=== PATIENT | female | born 1955 | race African-American/Black ===

== ENCOUNTER → 2017-02-22 | Outpatient (CLI) | payer MEDICARE | LOC: RAD 09:30 | PROVIDERS: ATTEND Physician Assistant | DX: R07.9 Chest pain, unspecified (principal); R79.89 Other specified abnormal findings of blood chemistry | CPT/HCPCS: 71275 ==

== ENCOUNTER 2018-05-07 16:46 | Observation (INO) | payer MEDICARE ==
--- NOTE | 2018-05-07 17:27 | ER Document Report ---
ED Syncope and Near Syncope - General Stated Complaint: FAINTING Time Seen by Provider: 05/07/18 17:21 Notes: Patient was sitting in a chair in the yard when she began to feel dizzy and passed out. Her son caught the chair so the patient did not go to the ground. Patient says that she had eaten lunch just 10 or 15 minutes earlier. She had been picking up trash in the yard but only for a few minutes. Does not think she got overheated. Patient said that she was having some nausea but has not vomited. No change in bowel habits. Patient recalls sweating heavily after this happened until she was brought here by EMS. Has not been sick recently. Patient has a history of high cholesterol and high blood pressure, rheumatoid arthritis on prednisone, TRAVEL OUTSIDE OF THE [place] IN LAST 30 DAYS: No - Related Data Allergies/Adverse Reactions: No Known Allergies Allergy (Verified 05/07/18 18:43) Past Medical History - Social History Smoking Status: Former Smoker - Smokes vapor cigarettes. Family History: Reviewed & Not Pertinent - Past Medical History Cardiac Medical History: Reports: Hx Hypercholesterolemia, Hx Hypertension Endocrine Medical History: Denies: Hx Diabetes Mellitus Type 1, Hx Diabetes Mellitus Type 2 Past Surgical History: Reports: Hx Tubal Ligation - Immunizations Hx Diphtheria, Pertussis, Tetanus Vaccination: Yes Review of Systems - Review of Systems Notes: REVIEW OF SYSTEMS: CONSTITUTIONAL : Denies fever. EENT: Denies eye, ear, nose or mouth or throat pain or other symptoms. CARDIOVASCULAR: Denies chest pain. RESPIRATORY: Denies cough, chest congestion, or shortness of breath. GASTROINTESTINAL: See HPI. GENITOURINARY: Denies difficulty or painful urinating, urinary frequency, blood in urine. MUSCULOSKELETAL: Denies back or neck pain. Denies joint pain or swelling. SKIN: Denies rash or skin lesions. NEUROLOGICAL: See HPI. Denies headache. Denies sensory loss or motor deficits. ALL OTHER SYSTEMS REVIEWED AND NEGATIVE. Physical Exam - Vital signs Vitals: Resp Pulse Ox 12 95 05/07/18 16:58 05/07/18 16:58 Interpretation: Normal Course - Re-evaluation Re-evalutation: 05/07/18 20:33 Discussed results of studies with patient and with Dr. Toledo who is on for this patient's primary care provider, Dr. Marinelli. We have recommended that the patient stay in the hospital overnight on monitoring. Patient will be admitted to Dr. Marinelli's service. - Vital Signs Vital signs: Temp Pulse Resp BP Pulse Ox 14 122/73 95 05/07/18 20:01 05/07/18 20:00 05/07/18 20:01 - Laboratory Result Diagrams: 05/07/18 19:30 05/07/18 19:30 Laboratory results interpreted by me: 05/07/18 05/07/18 05/07/18 19:30 19:30 19:49 WBC 11.3 H MCH 25.7 L RDW 16.0 H Seg Neutrophils % 83.6 H Lymphocytes % 9.6 L Absolute Neutrophils 9.5 H BUN 24 H Glucose 126 H Urine Ketones TRACE H Ur Leukocyte Esterase TRACE H Discharge - Discharge Clinical Impression: Syncope Condition: Stable Disposition: ADMITTED OBSERVATION Admitting Provider: Yves Unit Admitted: Telemetry Referrals: TIKI PITTS PA [Primary Care Provider] - Follow up as needed
--- NOTE | 2018-05-07 19:02 | RADIOLOGY REPORT (SQ) ---
EXAM DESCRIPTION: CT HEAD WITHOUT COMPLETED DATE/TIME: 05/07/2018 6:40 pm REASON FOR STUDY: Syncope COMPARISON: CT head 12/23/2008. MRI brain 12/24/2008. TECHNIQUE: Axial images acquired through the brain without intravenous contrast. Images reviewed wi th bone, brain and subdural windows. Images stored on PACS. All CT scanners at this facility use dose modulation, iterative reconstruction, and/or weight based d osing when appropriate to reduce radiation dose to as low as reasonably achievable (ALARA). [facility]: Dose Right [facility]: CareDose [facility]: Dose Right [facility]: Teradose 4D [facility]: Smart Technologies RADIATION DOSE: CT Rad equipment meets quality standard of care and radiation dose reduction techniq ues were employed. CTDIvol: 53.2 mGy. DLP: 1044 mGy-cm. mGy. LIMITATIONS: None. FINDINGS: VENTRICLES: Normal size and contour. CEREBRUM: No mass effect. No hemorrhage. No midline shift. No evidence for acute territorial infar ction. Low density areas are seen within the periventricular white matter. CEREBELLUM: No hemorrhage. No alteration of density. No evidence for acute infarction. EXTRAAXIAL SPACES: No fluid collections. ORBITS AND GLOBE: Symmetrical contour of the globes. CALVARIUM: No depressed fracture. PARANASAL SINUSES: No air-fluid level. SOFT TISSUES: No hematoma. IMPRESSION: No acute intracranial hemorrhage or acute territorial infarct. White matter changes, ma y be secondary to demyelinating disease versus chronic microvascular ischemia. EVIDENCE OF ACUTE STROKE: NO. COMMENT: Quality ID # [id number]: Final reports with documentation of one or more dose reduction techniques (e.g., Automated exposure control, adjustment of the mA and/or kV according to patient size, use of iterative reconstruction technique) TECHNICAL DOCUMENTATION: JOB ID: [id number] 2010 [employer]- All Rights Reserved Reading location - IP/workstation name: [email or web address]
--- NOTE | 2018-05-07 19:34 | RADIOLOGY REPORT (SQ) ---
EXAM DESCRIPTION: CHEST 2 VIEWS COMPLETED DATE/TIME: 05/07/2018 6:48 pm REASON FOR STUDY: Syncope COMPARISON: Chest x-ray 12/23/2008. EXAM PARAMETERS: NUMBER OF VIEWS: two views TECHNIQUE: Digital Frontal and Lateral radiographic views of the chest acquired. RADIATION DOSE: NA LIMITATIONS: none FINDINGS: LUNGS AND PLEURA: No consolidation, pneumothorax or pleural effusion. MEDIASTINUM AND HILAR STRUCTURES: No masses or contour abnormalities. HEART AND VASCULAR STRUCTURES: Heart normal size. No evidence for failure. BONES: There is thoracic scoliosis. HARDWARE: None in the chest. IMPRESSION: NO ACUTE RADIOGRAPHIC FINDING IN THE CHEST. TECHNICAL DOCUMENTATION: JOB ID: [id number] [id number] 2010 [employer]- All Rights Reserved Reading location - IP/workstation name: [email or web address]
[2018-05-07 19:42] LABS: ABSOLUTE BASOPHILS # (AUTO) 0.1 10^3/uL (0.0-0.2); ABSOLUTE LYMPHOCYTES (AUTO) 1.1 10^3/uL (0.5-4.7); ABSOLUTE MONOCYTES (AUTO) 0.7 10^3/uL (0.1-1.4); ABSOLUTE NEUT (AUTO) 9.5 10^3/uL (1.7-8.2); BASOPHILS % (AUTO) 0.8 % (0-2); EOSINOPHILS % (AUTO) 0.1 % (0-6); HEMATOCRIT 39.4 % (36.0-47.0); HEMOGLOBIN 12.7 g/dL (12.0-15.5); LYMPHOCYTES % (AUTO) 9.6 % (13-45); MEAN CORPUSCULAR HEMOGLOBIN 25.7 pg (27.0-33.4); MEAN CORPUSCULAR HGB CONC 32.2 g/dL (32.0-36.0); MEAN CORPUSCULAR VOLUME 80 fl (80-97); MONOCYTES % (AUTO) 5.9 % (3-13); PLATELET COUNT 264 10^3/uL (150-450); RED BLOOD COUNT 4.95 10^6/uL (3.72-5.28); SEGMENTED NEUTROPHILS % (AUTO) 83.6 % (42-78); TOTAL CELLS COUNTED % (AUTO) 100 %; WHITE BLOOD COUNT 11.3 10^3/uL (4.0-10.5)
[2018-05-07 20:04] LABS: ALANINE AMINOTRANSFERASE 20 U/L (9-52); ALBUMIN 3.9 g/dL (3.5-5.0); ALKALINE PHOSPHATASE 63 U/L (38-126); ANION GAP 13 (5-19); ASPARTATE AMINO TRANSFERASE 20 U/L (14-36); BILIRUBIN,DIRECT 0.3 mg/dL (0.0-0.4); BILIRUBIN,TOTAL 0.3 mg/dL (0.2-1.3); BLOOD UREA NITROGEN 24 mg/dL (7-20); CALCIUM 9.5 mg/dL (8.4-10.2); CARBON DIOXIDE 26 mmol/L (22-30); CHLORIDE 106 mmol/L (98-107); CREATINE KINASE 37 U/L (30-135); GLUCOSE 126 mg/dL (75-110); LIPASE 101.1 U/L (23-300); SODIUM 144.7 mmol/L (137-145); TOTAL PROTEIN 7.3 g/dL (6.3-8.2)
[2018-05-07 20:16] LABS: CREATINE KINASE MB < 0.22 ng/mL (<4.55); TROPONIN I < 0.012 ng/mL
[2018-05-07 20:24] LABS: APPEARANCE,URINE CLEAR; BILIRUBIN,URINE NEGATIVE (NEGATIVE); COLOR,URINE YELLOW; GLUCOSE, URINE NEGATIVE (NEGATIVE); KETONES,URINE TRACE mg/dL (NEGATIVE); LEUKOCYTE ESTERASE,URINE TRACE (NEGATIVE); NITRITE,URINE NEGATIVE (NEGATIVE); PROTEIN,URINE NEGATIVE (NEGATIVE); URINE SPECIFIC GRAVITY 1.018; UROBILINOGEN,URINE NEGATIVE mg/dL (<2.0)
[2018-05-07] MEDS ORDERED: NORMAL SALINE 1000 ML 1,000 ML IV PRN (21:16)
[2018-05-07] MEDS ORDERED: CEFTRIAXONE INJ 1000 MG VIAL ONE (21:31)
[2018-05-07] MEDS ORDERED: CEFTRIAXONE 1 GM/D5W RTU 1 GM/50 ML RTUPB IV SCH (22:00)
--- NOTE | 2018-05-07 22:00 | PDOC H&P ---
History of Present Illness Admission Date/PCP: 05/07/18 21:09 TIMOTHY ALONSO MD Patient complains of: Syncope History of Present Illness: HAILEY BENDER is a 62 year old female patient of Dr Timothy Alonso who presented to the ED via EMS after family reported witnessed syncopal episode. Patient was lucid and able to contribute to her medical history at the time of my evaluation with daughter at bedside and concur with her narrated history. Patient reported walking out of her house into family gathering at a barbecue. She bend down and picked up some garbage from the floor, sat down, noted to be breathing heavily by son sitting nearby and subsequently passed out. Patient admitted to feeling dizzy denied any preceding palpitation, diaphoresis, nausea , or abdominal pain. Daughter reported that patient became clammy and cold to touch during period of the syncopal event. Patient reported episode of abdominal discomfort with nausea but no vomiting en route to the ED. She reported compliance with her medications. Denied alcohol intake, illicit or recreational drug usage. Her initial evaluation in the ED was unrevealing except some abnormality in her urinalysis. Her morbidities include Hypertension , Hyperlipidemia, and Rheumatoid arthritis. She reported similar syncopal episodes in the past. She was advised hospitalization of observation bed for further evaluation and management. Past Medical History Cardiac Medical History: Reports: Hyperlipidema, Hypertension Endocrine Medical History: Denies: Diabetes Mellitus Type 1, Diabetes Mellitus Type 2 Past Surgical History Past Surgical History: Reports: Tubal Ligation Social History Smoking Status: Former Smoker - Smokes vapor cigarettes. Family History Family History: Reviewed & Not Pertinent Parental Family History Reviewed: Yes Children Family History Reviewed: Yes Sibling(s) Family History Reviewed.: Yes Medication/Allergy Home Medications: Ibuprofen 800 mg PO PRN PRN 09/14/13 Lisinopril/Hydrochlorothiazide [Lisinopril-Hctz 20-12.5 mg Tab] 1 each PO PRN PRN 09/14/13 Pentoxifylline [Pentoxil] 1,400 mg PO TID 09/14/13 Allergies/Adverse Reactions: No Known Allergies Allergy (Verified 05/07/18 18:43) Review of Systems Constitutional: ABSENT: chills, fever(s), headache(s), weight gain, weight loss Eyes: ABSENT: visual disturbances Ears: ABSENT: hearing changes Nose, Mouth, and Throat: ABSENT: as per HPI, headache(s), mouth pain, sore throat, vertigo, other Cardiovascular: ABSENT: as per HPI, chest pain, dyspnea on exertion, edema, orthropnea, palpitations, other Respiratory: ABSENT: cough, hemoptysis Gastrointestinal: PRESENT: abdominal pain, nausea. ABSENT: as per HPI, bloating , coffee ground emesis, constipation, diarrhea, dysphagia, heartburn, hematemesis, hematochezia, melena, vomiting, other Genitourinary: ABSENT: dysuria, hematuria Musculoskeletal: ABSENT: joint swelling Integumentary: PRESENT: diaphoresis. ABSENT: as per HPI, erythema, lesions, pruritus, rash, wounds, other Neurological: PRESENT: dizziness, syncope. ABSENT: as per HPI, abnormal gait, abnormal movements, abnormal speech, confusion, convulsions, focal weakness, frequent falls, lack of coordination, memory loss, numbness, paresthesias, restless legs, tingling, tremor(s), vertigo, weakness, other Psychiatric: ABSENT: anxiety, depression, homidical ideation, suicidal ideation Endocrine: ABSENT: cold intolerance, heat intolerance, polydipsia, polyuria Hematologic/Lymphatic: ABSENT: easy bleeding, easy bruising, lymphadenopathy Allergic/Immunologic: ABSENT: seasonal rhinorrhea Physical Exam Vital Signs: Temp Pulse Resp BP Pulse Ox 14 122/73 95 05/07/18 20:01 05/07/18 20:00 05/07/18 20:01 General appearance: PRESENT: no acute distress, well-developed, well-nourished Head exam: PRESENT: atraumatic, normocephalic Eye exam: PRESENT: conjunctiva pink, EOMI, PERRLA. ABSENT: scleral icterus Ear exam: PRESENT: normal external ear exam Mouth exam: PRESENT: moist, neck supple, tongue midline Throat exam: ABSENT: post pharyngeal erythema, tonsillar erythema, tonsillar exudate, tonsillogmegaly, other Neck exam: PRESENT: full ROM. ABSENT: carotid bruit, JVD, lymphadenopathy, thyromegaly Respiratory exam: PRESENT: clear to auscultation caitlin Cardiovascular exam: PRESENT: RRR. ABSENT: diastolic murmur, rubs, systolic murmur Pulses: PRESENT: normal dorsalis pedis pul, +2 pedal pulses bilateral Vascular exam: PRESENT: normal capillary refill. ABSENT: pallor GI/Abdominal exam: PRESENT: tenderness - suprapubic region. ABSENT: ascites, diminished bowel sounds, distended, firm, guarding, hernia, hyperactive bowel sounds, hypoactive bowel sounds, mass, Burgess's sign, normal bowel sounds, organolmegaly, rebound, rigid, soft, other Rectal exam: PRESENT: deferred Gentrourinary exam: ABSENT: indwelling catheter Extremities exam: ABSENT: pedal edema Musculoskeletal exam: PRESENT: normal inspection Neurological exam: PRESENT: alert, awake, oriented to person, oriented to place , oriented to time, oriented to situation, CN II-XII grossly intact. ABSENT: motor sensory deficit Psychiatric exam: PRESENT: appropriate affect, normal mood. ABSENT: homicidal ideation, suicidal ideation Skin exam: PRESENT: dry, intact, warm. ABSENT: cyanosis, rash Results Laboratory Results: I reviewed her laboratory results on [facility] and form significant part of my medical decision making. Impressions: Chest X-Ray 05/07/18 17:30 IMPRESSION: NO ACUTE RADIOGRAPHIC FINDING IN THE CHEST. Head CT 05/07/18 17:31 IMPRESSION: No acute intracranial hemorrhage or acute territorial infarct. White matter changes, may be secondary to demyelinating disease versus chronic microvascular ischemia. EVIDENCE OF ACUTE STROKE: NO. Assessment & Plan - Diagnosis (1) Syncope Qualifiers: Syncope type: unspecified Qualified Code(s): R55 - Syncope and collapse Is this a current diagnosis for this admission?: Yes Plan: See covering admitting physician orders. (2) UTI (urinary tract infection), bacterial Is this a current diagnosis for this admission?: Yes Plan: See covering admitting physician orders. (3) HTN (hypertension) Qualifiers: Hypertension type: essential hypertension Qualified Code(s): I10 - Essential (primary) hypertension Is this a current diagnosis for this admission?: Yes Plan: See covering admitting physician orders. (4) HLD (hyperlipidemia) Qualifiers: Hyperlipidemia type: unspecified Qualified Code(s): E78.5 - Hyperlipidemia , unspecified Is this a current diagnosis for this admission?: Yes Plan: See covering admitting physician orders. (5) Rheumatoid arthritis Qualifiers: Rheumatoid arthritis location: unspecified site Is this a current diagnosis for this admission?: Yes Plan: See covering admitting physician orders. - Time Time Spent: 50 to 70 Minutes Medications reviewed and adjusted accordingly: Yes Anticipated discharge: Home Within: within 48 hours - Plan Summary Plan Summary: See covering admitting physician orders.
--- NOTE | 2018-05-07 23:16 | EKG REPORT ---
SEVERITY:- NORMAL ECG - SINUS RHYTHM : Confirmed by: Chelsey Teresa 07-May-2018 23:15:07
[2018-05-08 05:54] LABS: ANION GAP 10 (5-19); BLOOD UREA NITROGEN 20 mg/dL (7-20); CALCIUM 9.3 mg/dL (8.4-10.2); CARBON DIOXIDE 25 mmol/L (22-30); CHLORIDE 109 mmol/L (98-107); CHOLESTEROL 179.75 mg/dL (0-200); GLUCOSE 85 mg/dL (75-110); SODIUM 144.4 mmol/L (137-145); TRIGLYCERIDES 45 mg/dL (<150)
[2018-05-08 06:04] LABS: DIRECT LDL 88 mg/dL (<100)
[2018-05-08 06:41] LABS: ABSOLUTE BASOPHILS # (AUTO) 0.1 10^3/uL (0.0-0.2); ABSOLUTE LYMPHOCYTES (AUTO) 2.4 10^3/uL (0.5-4.7); ABSOLUTE NEUT (AUTO) 6.7 10^3/uL (1.7-8.2); BASOPHILS % (AUTO) 0.8 % (0-2); EOSINOPHILS % (AUTO) 0.3 % (0-6); HEMATOCRIT 36.6 % (36.0-47.0); HEMOGLOBIN 11.9 g/dL (12.0-15.5); LYMPHOCYTES % (AUTO) 23.3 % (13-45); MEAN CORPUSCULAR HEMOGLOBIN 26.2 pg (27.0-33.4); MEAN CORPUSCULAR HGB CONC 32.4 g/dL (32.0-36.0); MEAN CORPUSCULAR VOLUME 81 fl (80-97); MONOCYTES % (AUTO) 9.4 % (3-13); PLATELET COUNT 257 10^3/uL (150-450); RED BLOOD COUNT 4.54 10^6/uL (3.72-5.28); RED CELL DISTRIBUTION WIDTH 15.6 % (11.5-14.0); SEGMENTED NEUTROPHILS % (AUTO) 66.2 % (42-78); TOTAL CELLS COUNTED % (AUTO) 100 %; WHITE BLOOD COUNT 10.2 10^3/uL (4.0-10.5)
[2018-05-08] MEDS: LANSOPRAZOLE 30 MG TAB.RAP.DR PO SCH (08:29)
[2018-05-08] MEDS ORDERED: LORAZEPAM INJ 2 MG/1 ML VIAL IV ONE (10:00)
[2018-05-08] MEDS ORDERED: CEFTRIAXONE SODIUM 1,000 MG in DEXTROSE 5%-WATER 50 ML IV SCH (10:00)
[2018-05-08] MEDS ORDERED: (PENDING PHARMACY ID) (Lisinopril/Hydrochlorothiazide [Lisinopril-Hctz 20-12.5 Mg Tab] 1 T PO SCH (10:00)
[2018-05-08] MEDS ORDERED: ASPIRIN 325 MG TABLET PO SCH (10:00)
[2018-05-08] MEDS ORDERED: PREDNISONE 5 MG TABLET PO SCH (10:00)
[2018-05-08] MEDS ORDERED: ENOXAPARIN SODIUM INJ 40 MG/0.4 ML DISP.SYRIN SUBCUT SCH (10:00)
[2018-05-08] MEDS ORDERED: LISINOPRIL 10 MG TABLET PO SCH (10:00)
[2018-05-08] MEDS ORDERED: HYDROCHLOROTHIAZIDE 12.5 MG TABLET PO SCH (10:00)
--- NOTE | 2018-05-08 11:32 | PDOC CONSULTATION ---
Consultation Consult Date: 05/08/18 Attending physician:: TIMOTHY MARINELLI Consult reason:: Syncope History of Present Illness Admission Date/PCP: 05/07/18 21:[address] Patient complains of: Syncope History of Present Illness: HAILEY BENDER is a 62 year old female patient of Dr Timothy Marinelli who presented to the ED via EMS after family reported witnessed syncopal episode. Patient was lucid and able to contribute to her medical history at the time of my evaluation with daughter at bedside and concur with her narrated history. Patient reported walking out of her house into family gathering at a [employer]. She bend down and picked up some garbage from the floor, sat down, noted to be breathing heavily by son sitting nearby and subsequently passed out. Patient admitted to feeling dizzy denied any preceding palpitation, diaphoresis, nausea , or abdominal pain. Daughter reported that patient became clammy and cold to touch during period of the syncopal event. Patient reported episode of abdominal discomfort with nausea but no vomiting en route to the ED. She reported compliance with her medications. Denied alcohol intake, illicit or recreational drug usage. Her initial evaluation in the ED was unrevealing except some abnormality in her urinalysis. Her morbidities include Hypertension , Hyperlipidemia, and Rheumatoid arthritis. She reported similar syncopal episodes in the past. She was advised hospitalization of observation bed for further evaluation and management. This history was reviewed and confirmed. Patient claims that her symptoms started with abdominal discomfort, subsequently he felt dizzy and passed out. When she came around she was noted to be diaphoretic and also nauseous. Patient did not vomit. This history suggestive of vasovagal episode. Patient had a similar syncopal spell about a year ago. She was at that time evaluated with a 2D echocardiogram, carotid duplex and cardiac event monitoring. These results were noted to be negative. Patient also had a nuclear stress test which was noted to be negative. Past Medical History Cardiac Medical History: Reports: Hyperlipidema, Hypertension Endocrine Medical History: Denies: Diabetes Mellitus Type 1, Diabetes Mellitus Type 2 Past Surgical History Past Surgical History: Reports: Tubal Ligation Social History Information Source: Patient Smoking Status: Former Smoker Last Time Smoked: quit in 2008; patient now "vaps" Frequency of Alcohol Use: None Hx Recreational Drug Use: No Drugs: None Hx Prescription Drug Abuse: No - Advance Directive Resuscitation Status: Full Code Surrogate healthcare decision maker:: Patient's daughter is the surrogate decision-maker Family History Family History: Hypertension Parental Family History Reviewed: Yes Children Family History Reviewed: Yes Sibling(s) Family History Reviewed.: Yes Medication/Allergy Home Medications: Aspirin [Aspirin 325 mg Tablet] 1 tab PO DAILY 05/08/18 Golimumab [Simponi] 50 mg SUBCUT [id number] 05/08/18 Lisinopril/Hydrochlorothiazide [Lisinopril-Hctz 20-12.5 mg Tab] 1 tab PO DAILY 05/08/18 Methotrexate Sodium [Rheumatrex 2.5 mg Tablet] 8 mg PO MO@1000 PRN 05/08/18 Prednisone [Prednisone] 7.5 mg PO DAILY 05/08/18 Simvastatin [Zocor 10 mg Tablet] 10 mg PO QHS 05/08/18 Allergies/Adverse Reactions: No Known Allergies Allergy (Verified 05/07/18 18:43) Review of Systems Review of Systems: Please see history of present illness and past medical history as wall. Constitutional: No fever or chills reported. Head : No recent chronic headaches, recent head injury. Eyes: No recent eye pain, diplopia, redness, discharge, acute visual changes. Ears: No recent chronic ear pain, acute hearing loss, ear discharge. Oral cavity: No recent ulcerations, bleeding, oral cavity discomfort. Neck: No recent acute neck pain reported. Hematologic: No recent easy bruising or bleeding. Lymphatic: No recent lymph node enlargement reported. Cardiovascular system review: See history of present illness. Respiratory system review: No hemoptysis or blood clots in the lungs reported. Mild Shortness of breath on exertion Gastrointestinal system review: Negative for any recent acute hematemesis, melena. Genitourinary system review: No recent acute or chronic hematuria, flank pain, UTI etc. reported. Skin system review: Negative for any recent abnormal bruising, no rash, no pruritus reported. Neurologic: No prior history of strokes, mini strokes, seizure disorder. History of syncope slightly over a year ago. Psychologic: No history of major psychosis or major depression reported. Musculoskeletal: Minor aches and pains reported. No acute joint swelling reported. Endocrine: No recent polyuria, polydipsia, recent heat or cold intolerance. Physical Exam Vital Signs: Temp Pulse Resp BP Pulse Ox 98.6 F 57 L 16 121/75 99 05/08/18 08:18 05/08/18 08:18 05/08/18 08:18 05/08/18 10:40 05/08/18 08:18 Intake & Output 05/07/18 05/08/18 05/09/18 06:59 06:59 06:59 Output Total 400 Balance -400 Weight 73.2 kg Exam: GENERAL: well-nourished and in no acute distress. Alert and oriented x3 HEAD: Atraumatic, normocephalic. EYES: Pupils equal round and reactive to light, extraocular movements intact, sclera anicteric, conjunctiva are normal. ENT: TMs normal, nares patent, oropharynx clear without exudates. Moist mucous membranes. No oral ulcerations or bleeding gums noted NECK: supple without lymphadenopathy. Trachea is central. No cervical or axillary lymphadenopathy noted. Carotids are 2+, JVD WNL LUNGS: Respiration seems nonlabored, no significant accessory muscle action noted. Breath sounds clear to auscultation bilaterally and equal noted. No wheezes rales or rhonchi noted. No significant dullness noted on percussion. CHEST: Palpation of the chest wall shows no significant chest wall tenderness. HEART: [place] [employer], No PSH, 1/6 DAVID aortic area, 1/6 gasca systolic murmur mitral area, no rubs, no gallops. ABDOMEN: Soft, no significant tenderness appreciated, normoactive bowel sounds. No guarding, no rebound. No rigidity noted . No masses appreciated. EXTREMITIES: Pedal pulses are 1-2+, no calf tenderness noted. No clubbing or cyanosis. negative pedal edema noted NEUROLOGICAL: Focused neurological exam showed no significant neurologic deficit. Normal speech, no focal weakness appreciated. PSYCH: Normal mood, normal affect. Judgment and insight within normal limits. SKIN: No significant ecchymosis, skin is noted to be warm. MUSCULOSKELETAL EXAM: No significant acute joint swelling noted. Results Laboratory Results: 05/08/18 05:37 05/08/18 04:45 05/08/18 05/08/18 04:45 05:37 WBC 10.2 RBC 4.54 Hgb 11.9 L Hct 36.6 MCV 81 MCH 26.2 L MCHC 32.4 RDW 15.6 H Plt Count 257 Seg Neutrophils % 66.2 Lymphocytes % 23.3 Monocytes % 9.4 Eosinophils % 0.3 Basophils % 0.8 Absolute Neutrophils 6.7 Absolute Lymphocytes 2.4 Absolute Monocytes 1.0 Absolute Eosinophils 0.0 Absolute Basophils 0.1 Sodium 144.4 Potassium 4.0 Chloride 109 H Carbon Dioxide 25 Anion Gap 10 BUN 20 Creatinine 0.79 Est GFR ( Amer) > 60 Est GFR (Non-Af Amer) > 60 Glucose 85 Calcium 9.3 Triglycerides 45 Cholesterol 179.75 LDL Cholesterol Direct 88 VLDL Cholesterol 9.0 L HDL Cholesterol 63 EKG Comments: Twelve-lead EKG shows sinus rhythm. No acute ST-T wave changes are noted. Impressions: Chest X-Ray 05/07/18 17:30 IMPRESSION: NO ACUTE RADIOGRAPHIC FINDING IN THE CHEST. Head CT 05/07/18 17:31 IMPRESSION: No acute intracranial hemorrhage or acute territorial infarct. White matter changes, may be secondary to demyelinating disease versus chronic microvascular ischemia. EVIDENCE OF ACUTE STROKE: NO. Assessment & Plan - Diagnosis (1) Syncope Qualifiers: Syncope type: unspecified Qualified Code(s): R55 - Syncope and collapse Is this a current diagnosis for this admission?: Yes (2) HLD (hyperlipidemia) Qualifiers: Hyperlipidemia type: unspecified Qualified Code(s): E78.5 - Hyperlipidemia , unspecified Is this a current diagnosis for this admission?: Yes (3) HTN (hypertension) Qualifiers: Hypertension type: essential hypertension Qualified Code(s): I10 - Essential (primary) hypertension Is this a current diagnosis for this admission?: Yes (4) Rheumatoid arthritis Qualifiers: Rheumatoid arthritis location: unspecified site Is this a current diagnosis for this admission?: Yes - Notes Notes: Syncope: Stanley to be vasovagal based on history as this was preceded by abdominal pain and patient also had some nausea and diaphoresis. At this point will recommend stopping lisinopril and also HCTZ and place patient on losartan. Losartan is usually better tolerated in [place]. Lisinopril can also results in abdominal pain in rare occasion. Hyperlipidemia: Continue statin therapy. Hypertension: Blood pressure goal is 140/90. Currently well controlled. Rheumatoid arthritis: Stable. Continue current regimen. Patient will benefit from cardiac monitoring further as an outpatient and possibly a tilt table study. This can be arranged through my office. - Time Time Spent: 30 to 50 Minutes - CODE STATUS was discussed, patient remains full code. Surrogate decision-maker unchanged. Multiple medical problems were addressed. More than 50% of the time spent coordinating care, discussing management plans with involved caregivers. Management plans discussed with involved personnels. Medical decision making was of moderate to high complexity , patient's has multiple comorbidities. Medications reviewed and adjusted accordingly: Yes
[2018-05-08 11:47] LABS: CREATINE KINASE MB < 0.22 ng/mL (<4.55); TROPONIN I < 0.012 ng/mL
--- NOTE | 2018-05-08 13:13 | PDOC PROGRESS REPORT ---
Subjective Progress Note for:: 05/08/18 Subjective:: Patient is currently doing fair Patients came because syncopal episode with ongoing problems however extensive workup done including all cardiac workup is negative by Dr. Teresa Patient had a CT scan and MRI of the brain done before post all negative Patient's otherwise denied any chest pain denied any shortness of the breath Reason For Visit: SYNCOPE,PROBABLE UTI Physical Exam Vital Signs: Temp Pulse Resp BP Pulse Ox 98.4 F 54 L 16 113/60 100 05/08/18 11:04 05/08/18 11:04 05/08/18 11:04 05/08/18 11:04 05/08/18 11:04 Intake & Output 05/07/18 05/08/18 05/09/18 06:59 06:59 06:59 Output Total 400 Balance -400 Weight 73.2 kg General appearance: PRESENT: no acute distress, well-developed, well-nourished Head exam: PRESENT: atraumatic, normocephalic Eye exam: PRESENT: conjunctiva pink, EOMI, PERRLA. ABSENT: scleral icterus Ear exam: PRESENT: normal external ear exam Mouth exam: PRESENT: moist, tongue midline Neck exam: PRESENT: full ROM. ABSENT: carotid bruit, JVD, lymphadenopathy, thyromegaly Respiratory exam: PRESENT: clear to auscultation caitlin Cardiovascular exam: PRESENT: RRR. ABSENT: diastolic murmur, rubs, systolic murmur Pulses: PRESENT: normal dorsalis pedis pul, +2 pedal pulses bilateral Vascular exam: PRESENT: normal capillary refill GI/Abdominal exam: PRESENT: normal bowel sounds, soft. ABSENT: distended, guarding, mass, organolmegaly, rebound, tenderness Rectal exam: PRESENT: deferred Extremities exam: ABSENT: pedal edema Musculoskeletal exam: PRESENT: ambulatory Neurological exam: PRESENT: alert, awake, oriented to person, oriented to place , oriented to time, oriented to situation, CN II-XII grossly intact. ABSENT: motor sensory deficit Psychiatric exam: PRESENT: appropriate affect, normal mood. ABSENT: homicidal ideation, suicidal ideation Skin exam: PRESENT: dry, intact, warm. ABSENT: cyanosis, rash Results Laboratory Results: 05/08/18 05:37 05/08/18 04:45 05/08/18 05/08/18 04:45 05:37 WBC 10.2 RBC 4.54 Hgb 11.9 L Hct 36.6 MCV 81 MCH 26.2 L MCHC 32.4 RDW 15.6 H Plt Count 257 Seg Neutrophils % 66.2 Lymphocytes % 23.3 Monocytes % 9.4 Eosinophils % 0.3 Basophils % 0.8 Absolute Neutrophils 6.7 Absolute Lymphocytes 2.4 Absolute Monocytes 1.0 Absolute Eosinophils 0.0 Absolute Basophils 0.1 Sodium 144.4 Potassium 4.0 Chloride 109 H Carbon Dioxide 25 Anion Gap 10 BUN 20 Creatinine 0.79 Est GFR ( Amer) > 60 Est GFR (Non-Af Amer) > 60 Glucose 85 Calcium 9.3 Triglycerides 45 Cholesterol 179.75 LDL Cholesterol Direct 88 VLDL Cholesterol 9.0 L HDL Cholesterol 63 05/08/18 05/08/18 10:12 10:12 Creatine Kinase 27 L CK-MB (CK-2) < 0.22 Troponin I < 0.012 Impressions: Chest X-Ray 05/07/18 17:30 IMPRESSION: NO ACUTE RADIOGRAPHIC FINDING IN THE CHEST. Head CT 05/07/18 17:31 IMPRESSION: No acute intracranial hemorrhage or acute territorial infarct. White matter changes, may be secondary to demyelinating disease versus chronic microvascular ischemia. EVIDENCE OF ACUTE STROKE: NO. Assessment & Plan - Diagnosis (1) Syncope Qualifiers: Syncope type: unspecified Qualified Code(s): R55 - Syncope and collapse Is this a current diagnosis for this admission?: Yes Plan: Very unclear etiology we consult the cardiology have all extensive workup done to further evaluate and get the MRI of the head (2) HTN (hypertension) Qualifiers: Hypertension type: essential hypertension Qualified Code(s): I10 - Essential (primary) hypertension Is this a current diagnosis for this admission?: Yes Plan: Continues to current medications (3) Rheumatoid arthritis Qualifiers: Rheumatoid arthritis location: unspecified site Is this a current diagnosis for this admission?: Yes Plan: Currently hold the patient's current medications (4) UTI (urinary tract infection), bacterial Is this a current diagnosis for this admission?: Yes Plan: Start the patient on Rocephin wait for the culture and sensitivity - Time Time Spent with patient: 15-24 minutes Medications reviewed and adjusted accordingly: Yes Anticipated discharge: Other Within: Other - Inpatient Certification Medical Necessity: Need Close Monitoring Due to Risk of Patient Decompensation, Need for IV Antibiotics 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
--- NOTE | 2018-05-08 14:36 | RADIOLOGY REPORT (SQ) ---
EXAM DESCRIPTION: MRI HEAD WITHOUT COMPLETED DATE/TIME: 05/08/2018 2:05 pm REASON FOR STUDY: syncoap episode R55 SYNCOPE AND COLLAPSE I10 ESSENTIAL (PRIMARY) HYPERTENSION R8 2.99 OTHER ABNORMAL FINDINGS IN URINE COMPARISON: 12/24/2008 TECHNIQUE: Multiplanar imaging includes non-contrasted T1, T2, FLAIR, and diffusion with ADC map seq uences. Images stored on PACS. LIMITATIONS: Motion. FINDINGS: ANATOMY: No anomalies. Normal vascular flow voids. Pituitary fossa normal. CSF SPACES: Atrophy induced prominence of ventricles and CSF spaces. 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 High signal intensity lesions scattered throug hout the white matter on FLAIR imaging with distribution suggesting micro-vascular ischemic changes. No evidence of hemorrhage, mass, or extraaxial fluid collection. POSTERIOR FOSSA: No signal alteration. No hemorrhage. No edema, masses or mass effect. Internal cheyanne tory canals, cerebello-pontine angles, mastoids normal. DIFFUSION IMAGING: Negative for acute or sub-acute infarction. ORBITS: No masses. Globes normal. PARANASAL SINUSES: No fluid levels. Mucosa normal. OTHER: No other significant finding. IMPRESSION: Chronic ischemic changes. EVIDENCE OF ACUTE STROKE: NO. TECHNICAL DOCUMENTATION: JOB ID: [id number] [employer]- All Rights Reserved Reading location - IP/workstation name: [email or web address]
[2018-05-08 16:13] LABS: CREATINE KINASE MB < 0.22 ng/mL (<4.55); TROPONIN I < 0.012 ng/mL
[2018-05-08 21:22] LABS: CREATINE KINASE MB < 0.22 ng/mL (<4.55); TROPONIN I < 0.012 ng/mL
[2018-05-08] MEDS ORDERED: SIMVASTATIN 10 MG TABLET PO SCH (22:00)
[2018-05-09] MEDS: LANSOPRAZOLE 30 MG TAB.RAP.DR PO SCH (06:10)
[2018-05-09 07:12] LABS: ABSOLUTE BASOPHILS # (AUTO) 0.1 10^3/uL (0.0-0.2); ABSOLUTE LYMPHOCYTES (AUTO) 2.6 10^3/uL (0.5-4.7); ABSOLUTE MONOCYTES (AUTO) 0.7 10^3/uL (0.1-1.4); ABSOLUTE NEUT (AUTO) 4.4 10^3/uL (1.7-8.2); BASOPHILS % (AUTO) 0.9 % (0-2); EOSINOPHILS % (AUTO) 0.5 % (0-6); HEMATOCRIT 35.3 % (36.0-47.0); HEMOGLOBIN 11.3 g/dL (12.0-15.5); LYMPHOCYTES % (AUTO) 33.4 % (13-45); MEAN CORPUSCULAR HEMOGLOBIN 25.6 pg (27.0-33.4); MEAN CORPUSCULAR HGB CONC 31.9 g/dL (32.0-36.0); MEAN CORPUSCULAR VOLUME 80 fl (80-97); MONOCYTES % (AUTO) 9.2 % (3-13); PLATELET COUNT 225 10^3/uL (150-450); RED BLOOD COUNT 4.41 10^6/uL (3.72-5.28); RED CELL DISTRIBUTION WIDTH 16.1 % (11.5-14.0); TOTAL CELLS COUNTED % (AUTO) 100 %; WHITE BLOOD COUNT 7.9 10^3/uL (4.0-10.5)
[2018-05-09 07:33] LABS: ANION GAP 9 (5-19); BLOOD UREA NITROGEN 16 mg/dL (7-20); CALCIUM 8.8 mg/dL (8.4-10.2); CARBON DIOXIDE 25 mmol/L (22-30); CHLORIDE 112 mmol/L (98-107); GLUCOSE 82 mg/dL (75-110); POTASSIUM 3.9 mmol/L (3.6-5.0); SODIUM 145.7 mmol/L (137-145)
[2018-05-09 08:28] VITALS: BP 125/78
--- NOTE | 2018-05-09 09:37 | PDOC DISCHARGE SUMMARY ---
General - Admit/Disc Date/PCP Admission Date/Primary Care Provider: 05/07/18 21:[address] Discharge Date: 05/09/18 - Discharge Diagnosis (1) Syncope Is this a current diagnosis for this admission?: Yes Summary: Patient had a normal MRI of the head and cardiology was consult was done and patient have a recently all workup was done was stable most likely a vasovagal syncopal episode (2) HTN (hypertension) Is this a current diagnosis for this admission?: Yes Summary: Per cardiology will change the lisinopril to the losartan and hold HCTZ discussed with the patient's to check a blood pressure at Home (3) Rheumatoid arthritis Is this a current diagnosis for this admission?: Yes Summary: Mr. current medication and follow with the rheumatology (4) UTI (urinary tract infection), bacterial Is this a current diagnosis for this admission?: Yes Summary: Start the patient on a p.o. antibiotics and will wait for the culture and sensitivity - Additional Information Resuscitation Status: Full Code Discharge Diet: As Tolerated Discharge Activity: Activity As Tolerated Prescriptions: Ciprofloxacin HCl [Cipro 500 mg Tablet] 500 mg PO BID #10 tablet Losartan Potassium [Cozaar] 50 mg PO DAILY #30 tablet Home Medications: Aspirin [Aspirin 325 mg Tablet] 1 tab PO DAILY 05/08/18 Golimumab [Simponi] 50 mg SUBCUT [id number] 05/08/18 Methotrexate Sodium [Rheumatrex 2.5 mg Tablet] 8 mg PO MO@1000 PRN 05/08/18 Prednisone 7.5 mg PO DAILY 05/08/18 Simvastatin [Zocor 10 mg Tablet] 10 mg PO QHS 05/08/18 Ciprofloxacin HCl [Cipro 500 mg Tablet] 500 mg PO BID #10 tablet 05/09/18 Losartan Potassium [Cozaar] 50 mg PO DAILY #30 tablet 05/09/18 History of Present Illness History of Present Illness: HAILEY BENDER is a 62 year old female This is a 62-year-old female is present in the emergency department with a syncopal episodes and diagnosis was possible UTI with a vasovagal syncopal Hospital Course Hospital Course: This is a 62-year-old females with a significant history of the rheumatoid arthritis history of the syncopal episode however extensive cardiac workup done including the stress test and echocardiogram carotid Doppler recently by Dr. Teresa came to the emergency department with the further one episode of the syncopal and decided to admit in the hospital for further evaluation and treatments She underwent for the MRI of the head with some chronic changes no acute findings cardiac enzyme is all normal EKG all stable his Patient's at this point seen by the cardiology and suggest to change his lisinopril to the losartan and hold HCTZ All the found the urinary tract infections treated with IV Rocephin discharge with the p.o. antibiotics Patient otherwise remained stable p.o. intake is good walk in the hallway without any problem patient expressed to go homes Patient's discharge home with a stable condition and follow-up outpatients Physical Exam Vital Signs: Temp Pulse Resp BP Pulse Ox 98.0 F 54 L 16 125/78 99 05/09/18 08:25 05/09/18 08:25 05/09/18 08:25 05/09/18 08:25 05/09/18 08:25 Intake & Output 05/08/18 05/09/18 05/10/18 06:59 06:59 06:59 Intake Total 4101 965 Output Total 400 Balance -400 4101 965 Weight 73.2 kg 74.5 kg General appearance: PRESENT: no acute distress, well-developed, well-nourished Head exam: PRESENT: atraumatic, normocephalic Eye exam: PRESENT: conjunctiva pink, EOMI, PERRLA. ABSENT: scleral icterus Ear exam: PRESENT: normal external ear exam Mouth exam: PRESENT: moist, tongue midline Neck exam: PRESENT: full ROM. ABSENT: carotid bruit, JVD, lymphadenopathy, thyromegaly Respiratory exam: PRESENT: clear to auscultation caitlin Cardiovascular exam: PRESENT: RRR. ABSENT: diastolic murmur, rubs, systolic murmur Pulses: PRESENT: normal dorsalis pedis pul, +2 pedal pulses bilateral Vascular exam: PRESENT: normal capillary refill GI/Abdominal exam: PRESENT: normal bowel sounds, soft. ABSENT: distended, guarding, mass, organolmegaly, rebound, tenderness Rectal exam: PRESENT: deferred Extremities exam: ABSENT: pedal edema Musculoskeletal exam: PRESENT: ambulatory Neurological exam: PRESENT: alert, awake, oriented to person, oriented to place , oriented to time, oriented to situation, CN II-XII grossly intact. ABSENT: motor sensory deficit Psychiatric exam: PRESENT: appropriate affect, normal mood. ABSENT: homicidal ideation, suicidal ideation Skin exam: PRESENT: dry, intact, warm. ABSENT: cyanosis, rash Results Laboratory Results: 05/09/18 06:04 05/09/18 06:04 05/09/18 05/09/18 06:04 06:04 WBC 7.9 RBC 4.41 Hgb 11.3 L Hct 35.3 L MCV 80 MCH 25.6 L MCHC 31.9 L RDW 16.1 H Plt Count 225 Seg Neutrophils % 56.0 Lymphocytes % 33.4 Monocytes % 9.2 Eosinophils % 0.5 Basophils % 0.9 Absolute Neutrophils 4.4 Absolute Lymphocytes 2.6 Absolute Monocytes 0.7 Absolute Eosinophils 0.0 Absolute Basophils 0.1 Sodium 145.7 H Potassium 3.9 Chloride 112 H Carbon Dioxide 25 Anion Gap 9 BUN 16 Creatinine 0.85 Est GFR ( Amer) > 60 Est GFR (Non-Af Amer) > 60 Glucose 82 Calcium 8.8 05/08/18 05/08/18 05/08/18 10:12 10:12 15:06 Creatine Kinase 27 L 35 CK-MB (CK-2) < 0.22 Troponin I < 0.012 05/08/18 05/08/18 05/08/18 15:06 20:37 20:37 Creatine Kinase 37 CK-MB (CK-2) < 0.22 < 0.22 Troponin I < 0.012 < 0.012 Impressions: Chest X-Ray 05/07/18 17:30 IMPRESSION: NO ACUTE RADIOGRAPHIC FINDING IN THE CHEST. Head CT 05/07/18 17:31 IMPRESSION: No acute intracranial hemorrhage or acute territorial infarct. White matter changes, may be secondary to demyelinating disease versus chronic microvascular ischemia. EVIDENCE OF ACUTE STROKE: NO. Head MRI 05/08/18 00:00 IMPRESSION: Chronic ischemic changes. EVIDENCE OF ACUTE STROKE: NO. Qualifiers - * PATIENT BEING DISCHARGED WITH ANY OF THE FOLLOWING DIAGNOSIS: No VTE patient discharged on overlapping Therapy?: Yes Plan Time Spent: Greater than 30 Minutes - Follow with the cardiology outpatients following office in 1 week the patient was still on and off this episode needs to refer the neurology for further evaluations
== END 2018-05-09 09:03 | disposition home or self-care (01) ==
LOC: ER 16:46 → EH 21:09 → 4N 23:50
PROVIDERS: ADMIT Family Medicine; ATTEND Family Medicine
DX: R55 Syncope and collapse (principal); I10 Essential (primary) hypertension; M06.9 Rheumatoid arthritis, unspecified; N39.0 Urinary tract infection, site not specified; B96.89 Other specified bacterial agents as the cause of diseases classified elsewhere; R10.9 Unspecified abdominal pain; R11.0 Nausea; F17.290 Nicotine dependence, other tobacco product, uncomplicated; R06.02 Shortness of breath; E78.5 Hyperlipidemia, unspecified; R61 Generalized hyperhidrosis; R42 Dizziness and giddiness; Z79.899 Other long term (current) drug therapy; Z82.49 Family history of ischemic heart disease and other diseases of the circulatory system; Z79.82 Long term (current) use of aspirin; Z79.52 Long term (current) use of systemic steroids
CPT/HCPCS: 93005; 99285; 36415 ×3; 87040; 87086; 82553 ×2; 82550 ×2; 83690; 85025 ×3; 87088; 80048 ×2; 80053; 81001; 84484 ×2; 87186; 80061; 70551; 71046; 70450; 93010; G0378 ×3; A9270 ×6; J1650; J2060; J0696 ×2; J7030; J7512

== ENCOUNTER → 2019-01-16 | Outpatient (CLI) | payer MEDICARE ==
--- NOTE | 2019-01-16 09:57 | WOMENS IMAGING REPORT ---
EXAM DESCRIPTION: BONE DENSITY HIP/SPINE COMPLETED DATE/TIME: 01/16/2019 9:27 am REASON FOR STUDY: M81.0 AGE-RELATED OSTEOPOROSIS WITHOUT CURRENT PATHOLOGICAL FRACTURE M81.0 AGE-RE LATED OSTEOPOROSIS W/O CURRENT PATHOLOGICAL FRAC Z12.31 ENCNTR SCREEN MAMMOGRAM FOR MALIGNANT NEOPLA [facility] COMPARISON: None. TECHNIQUE: Dual-Energy X-ray Absorptiometry (DEXA) of the AP Spine and Hip. LIMITATIONS: None. FINDINGS: LUMBAR SPINE: The bone mineral density (BMD) measured from L1-L4 in the AP projection correlates with a T-score of -0.6, which is normal as defined by the World Health Organization. HIP: The bone mineral density (BMD) measured in the left hip correlates with a T-score of -1.8, which is o steopenia as defined by the World Health Organization. IMPRESSION: 1. LUMBAR SPINE: NORMAL. 2. HIP: OSTEOPENIA. COMMENT: The World Health Organization defines low BMD as follows: T-score: Normal: Greater than -1.0 Osteopenia: Between -1.0 and -2.5 Osteoporosis: Less than -2.5 without fractures Established osteoporosis: Less than -2.5 with fractures In general, you may wish to consider: Diagnosis Treatment Follow-up DEXA Normal BMD Prevention 2-3 years Osteopenia Prevention/Therapy 1-2 years Osteoporosis Therapy Yearly TECHNICAL DOCUMENTATION: JOB ID: [id number] [employer]- All Rights Reserved Reading location - IP/workstation name: [email or web address]
--- NOTE | 2019-01-16 10:52 | WOMENS IMAGING REPORT ---
EXAM DESCRIPTION: 3D SCREENING MAMMO BILAT COMPLETED DATE/TIME: 01/16/2019 9:27 am REASON FOR STUDY: Z12.31 ENCOUNTER FOR SCREENING MAMMOGRAM FOR MALIGNANT NEOPLASM OF BREAST M81.0 A GE-RELATED OSTEOPOROSIS W/O CURRENT PATHOLOGICAL FRAC Z12.31 ENCNTR SCREEN MAMMOGRAM FOR MALIGNANT N EOPLASM OF ITNO COMPARISON: 07/02/2014. TECHNIQUE: Standard craniocaudal and mediolateral oblique views of each breast recorded using digita l acquisition and breast tomosynthesis. LIMITATIONS: None. FINDINGS: No masses, calcifications or architectural distortion. No areas of suspicion. Read with the assistance of CAD. .[facility] - R2 [employer] Version 1.3 .[facility] Imaging - R2 Cenova Version 2.1 .[facility] - R2 Cenova Version 2.4 .[facility] [place] - R2 Cenova Version 2.4 .[facility] - R2 Physics Instructor Version 9.2 IMPRESSION: NORMAL MAMMOGRAM. BIRADS 1. BREAST DENSITY: c. The breasts are heterogeneously dense, which may obscure small masses. BIRAD: 1 NEGATIVE RECOMMENDATION: ROUTINE SCREENING COMMENT: The patient has been notified of the results by letter per SA requirements. Additional no tification policies are in place for contacting patient with suspicious or incomplete findings. Quality ID #[id number]: The [employer] recommends an annual screening mammogram for women aged 40 years or over. This facility utilizes a reminder system to ensure that all patients receive reminder letters, and/or direct phone calls for appointments. This includes reminders for routine scr eening mammograms, diagnostic mammograms, or other Breast Imaging Interventions when appropriate. Th is patient will be placed in the appropriate reminder system. The [employer] (ACR) has developed recommendations for screening MRI of the breast s in certain patient populations, to be used in conjunction with mammography. Breast MRI surveillanc e may be appropriate for women with more than 20% lifetime risk of developing breast cancer as deter mined by genetic testing, significant family history of the disease, or history of mantle radiation f or Hodgkins Disease. ACR Practice Guidelines 2008. DBT Technology DBT is a type of tomographic mammography. With conventional mammography, overlapping breast tissue ma y make lesions difficult to detect, even with good compression. DBT uses an x-ray tube that rotates a round the breast, taking images at different angles. These images are then combined to create thin sl ices of the breast that the radiologist can view as a 3D reconstruction. The [employer] unit can perform full-field digital mammograms (2D imaging); or DBT (3D imaging); or both, in a combination mode that quickly performs both the mammogram and the tomosynthesis scan while the breast is still compressed. PQRS 6045F: Fluoroscopic imaging is not utilized for breast tomosynthesis. TECHNICAL DOCUMENTATION: FINDING NUMBER: (1) ASSESSMENT: (1) JOB ID: [id number] [employer]- All Rights Reserved Reading location - IP/workstation name: [email or web address]
== END ==
LOC: WI 08:19
PROVIDERS: ATTEND Physician Assistant
DX: Z12.31 Encounter for screening mammogram for malignant neoplasm of breast (principal); M81.0 Age-related osteoporosis without current pathological fracture
CPT/HCPCS: 77063; 77067; 77080